=== PATIENT | female | born 1970 | race African-American/Black ===

== ENCOUNTER 2019-01-05 12:05 | Emergency (ER) | payer BC ==
[~2019-01-05] VITALS: Ht 180.3 cm; Wt 104.0 kg
[2019-01-05] MEDS ORDERED: ASPIRIN 325MG EC TABLET PO ONE (12:45)
[2019-01-05] MEDS ORDERED: DIAZEPAM 5 MG TABLET PO ONE (12:45)
[2019-01-05 12:55] LABS: BASOPHILS % 1.3 % (0.0-2.0); EOSINOPHILS % 2.7 % (0.0-5.0); HEMATOCRIT. 31.8 % (36.0-48.0); HEMOGLOBIN. 10.1 g/dL (12.0-16.0); LYMPHOCYTES % 39.6 % (20.0-50.0); MEAN CORPUSCULAR HEMOGLOBIN 21.3 pg (28.0-32.0); MEAN CORPUSCULAR VOLUME 67.1 fL (81.0-99.0); MEAN PLATELET VOLUME 6.5 fl (7.4-10.4); MONOCYTES % 7.3 % (2.0-8.0); NEUTROPHILS % 49.1 % (40.0-76.0); PLATELET 396 x1000/uL (130-400); RED BLOOD CELL COUNT 4.74 mill/uL (4.2-5.4); RED CELL DISTRIBUTION WIDTH 19.1 % (11.6-14.6)
[2019-01-05 13:01] LABS: CHLORIDE 109 mEq/L (98-107)
[2019-01-05 13:18] LABS: PLATELET ESTIMATE NORMAL
[2019-01-05 16:00] VITALS: BP 129/68
== END 2019-01-05 16:27 | disposition home or self-care (01) ==
LOC: ER 12:05
DX: M54.2 Cervicalgia (principal); M25.512 Pain in left shoulder; R07.89 Other chest pain; M54.6 Pain in thoracic spine
CPT/HCPCS: 36415; 71045; 84484; 93005; 99284

== ENCOUNTER 2021-06-22 15:10 | Emergency (ER) | payer BC ==
[~2021-06-22] VITALS: Ht 177.8 cm; Wt 128.0 kg
[2021-06-22 18:15] VITALS: BP 122/68
== END 2021-06-22 18:20 | disposition home or self-care (01) ==
LOC: ER 15:10
DX: R20.2 Paresthesia of skin (principal)
CPT/HCPCS: 82962; 93005; 99284

== ENCOUNTER 2021-09-09 09:16 | Emergency (ER) | payer BC ==
[~2021-09-09] VITALS: Ht 180.3 cm; Wt 122.0 kg
[2021-09-09] MEDS ORDERED: IBUP-2030 MT (10:58)
[2021-09-09] MEDS ORDERED: TRAM50TA3 MT (10:58)
[2021-09-09] MEDS ORDERED: METH-773 MT (10:58)
[2021-09-09] MEDS ORDERED: KETOROLAC 60MG/2ML VIAL IM ONE (11:00)
[2021-09-09 11:33] VITALS: BP 142/69
== END 2021-09-09 11:34 | disposition home or self-care (01) ==
LOC: ER 09:26
DX: M25.561 Pain in right knee (principal); Z98.890 Other specified postprocedural states
CPT/HCPCS: 73562; 93970; 96372; 99284; J1885; L1830; Z7610

== ENCOUNTER 2023-02-28 18:16 | Emergency (ER) | payer BC ==
[~2023-02-28] VITALS: Ht 180.3 cm; Wt 125.0 kg
[~2023-02-28 18:16] MED LIST: IBUP-2030 MT; METH-773 MT; TRAM50TA3 MT
[2023-02-28 18:23] VITALS: O2SAT 98
[2023-02-28] MEDS ORDERED: ACETAMINOPHEN 325MG TABLET PO ONE (20:00)
[2023-02-28] MEDS ORDERED: IBUP-2029 MT (20:34)
[2023-02-28] MEDS ORDERED: METH-653 MT (20:34)
[2023-02-28] MEDS ORDERED: BACITRACIN ZINC OINT UDPKT TOP ONE (20:45)
[2023-02-28 20:49] VITALS: BP 136/89; PULSE 78; RESP 20; TEMP 98.3
== END 2023-02-28 20:50 | disposition home or self-care (01) ==
LOC: ER 18:16
DX: M79.10 Myalgia, unspecified site (principal); M79.644 Pain in right finger(s)
CPT/HCPCS: 73140; 99283

== ENCOUNTER 2023-03-04 12:18 | Emergency (ER) | payer BC ==
[~2023-03-04] VITALS: Ht 180.3 cm; Wt 124.7 kg
[~2023-03-04 12:18] MED LIST changes: +IBUP-2029 MT; +METH-653 MT
[2023-03-04 12:31] VITALS: BP 144/77; PULSE 60; RESP 16; TEMP 98.6; O2SAT 98
[2023-03-04] MEDS ORDERED: LIDOCAINE 5% PATCH TOP SCH (13:30)
[2023-03-04] MEDS ORDERED: NAPROXEN 250MG TABLET PO ONE (13:30)
[2023-03-04] MEDS ORDERED: NAPR-1074 MT (14:06)
[2023-03-04] MEDS ORDERED: BACL20TA MT (14:06)
== END 2023-03-04 14:17 | disposition home or self-care (01) ==
LOC: ER 12:18
DX: S13.4XXA Sprain of ligaments of cervical spine, initial encounter (principal); Z00.00 Encounter for general adult medical examination without abnormal findings; V49.9XXA Car occupant (driver) (passenger) injured in unspecified traffic accident, initial encounter; Y93.89 Activity, other specified; Y92.89 Other specified places as the place of occurrence of the external cause; Y99.8 Other external cause status
CPT/HCPCS: 73110; 99283

== ENCOUNTER 2024-09-27 13:09 | Inpatient (IN) | payer BC ==
[~2024-09-27] VITALS: Ht 175.3 cm; Wt 91.6 kg
[~2024-09-27 13:09] MED LIST changes: +BACL20TA MT; +NAPR-1074 MT
[2024-09-27] MEDS: ASPIRIN 325MG TABLET PO ONE (14:54)
[2024-09-27 15:16] LABS: CHLORIDE 106 mEq/L (98-107); POTASSIUM 3.8 mEq/L (3.5-5.1); SODIUM 141 mEq/L (136-145)
[2024-09-27 15:17] LABS: BASOPHILS % 0.8 % (0.0-2.0); CALCIUM 8.9 mg/dL (8.7-10.4); CARBON DIOXIDE 26 mEq/L (21-32); EOSINOPHILS % 0.5 % (0.0-5.0); HEMATOCRIT. 40.7 % (36.0-48.0); HEMOGLOBIN. 13.5 g/dL (12.0-16.0); LYMPHOCYTES % 57.1 % (20.0-50.0); MEAN CORPUSCULAR HGB CONC 33.1 g/dL (31.0-37.0); MEAN CORPUSCULAR VOLUME 84.6 fL (81.0-99.0); MEAN PLATELET VOLUME 8.2 fl (7.4-10.4); MONOCYTES % 11.3 % (2.0-8.0); NEUTROPHILS % 30.3 % (40.0-76.0); PLATELET 262 x1000/uL (130-400); RED BLOOD CELL COUNT 4.82 mill/uL (4.2-5.4); RED CELL DISTRIBUTION WIDTH 14.7 % (11.6-14.6); WHITE BLOOD COUNT 4.1 x1000/uL (4.5-11.0)
[2024-09-27 15:22] LABS: CREATININE 0.8 mg/dL (0.6-1.0); GLUCOSE 109 mg/dL (70-105)
[2024-09-27 15:23] LABS: UREA NITROGEN BLOOD 8 mg/dL (9-23)
[2024-09-27 15:26] LABS: TROPONIN I HIGH SENSITIVITY < 4 ng/L (3.0-34)
[2024-09-27] MEDS ORDERED: IPRATROPIUM/ALBUTEROL 0.5-3(2.5)MG/3ML NEB HHN PRN (16:30)
[2024-09-27] MEDS: ENOXAPARIN 40MG/0.4ML SYR SUBCUT SCH (21:43)
[2024-09-27 22:39] LABS: TROPONIN I HIGH SENSITIVITY < 4 ng/L (3.0-34)
[2024-09-28] VITALS (7 sets, daily range): BP systolic 95–116; BP diastolic 50–69; PULSE 60–82; RESP 16–18; TEMP 36.16956–36.6696; O2SAT 96–100
[2024-09-28 07:14] LABS: CHLORIDE 107 mEq/L (98-107); POTASSIUM 3.8 mEq/L (3.5-5.1); SODIUM 143 mEq/L (136-145)
[2024-09-28 07:15] LABS: CALCIUM 9.3 mg/dL (8.7-10.4); CARBON DIOXIDE 27 mEq/L (21-32)
[2024-09-28 07:20] LABS: CREATININE 0.7 mg/dL (0.6-1.0); GLUCOSE 98 mg/dL (70-105); UREA NITROGEN BLOOD 8 mg/dL (9-23)
[2024-09-28 07:22] LABS: CREATINE KINASE 58 IU/L (34-145)
[2024-09-28 07:43] LABS: TROPONIN I HIGH SENSITIVITY < 4 ng/L (3.0-34)
[2024-09-28] MEDS: ASPIRIN 81MG EC TABLET PO SCH (08:20)
[2024-09-28] MEDS: ACETAMINOPHEN 325MG TABLET PO PRN (08:20)
[2024-09-28 08:21] LABS: BASOPHILS % 0.7 % (0.0-2.0); EOSINOPHILS % 0.5 % (0.0-5.0); HEMATOCRIT. 38.3 % (36.0-48.0); HEMOGLOBIN. 12.6 g/dL (12.0-16.0); MEAN CORPUSCULAR VOLUME 84.8 fL (81.0-99.0); MEAN PLATELET VOLUME 8.3 fl (7.4-10.4); MONOCYTES % 8.7 % (2.0-8.0); NEUTROPHILS % 40.1 % (40.0-76.0); PLATELET 230 x1000/uL (130-400); RED BLOOD CELL COUNT 4.52 mill/uL (4.2-5.4); WHITE BLOOD COUNT 4.7 x1000/uL (4.5-11.0)
[2024-09-28 09:41] LABS: HEPATITIS B SURFACE ANTIGEN NEGATIVE (Negative)
[2024-09-28 10:02] LABS: HEPATITIS C AB NON REACTIVE (Neg) (Negative)
[2024-09-28] MEDS: PREDNISONE 20MG TABLET PO NR (14:15)
[2024-09-28] MEDS: HYDROCODONE/ACETAMINOPHEN 5/325MG TABLET PO PRN (14:16)
[2024-09-28] MEDS: AZITHROMYCIN 500 MG TABLET PO SCH (14:20)
[2024-09-28] MEDS ORDERED: IOHEXOL-350 100 ML BOTTLE ONE (17:11)
[2024-09-28] MEDS ORDERED: ASPI-1406 PO (18:16)
[2024-09-28] MEDS ORDERED: AZIT500T8 PO (18:16)
[2024-09-29] VITALS: BP 107/59; PULSE 61; RESP 18; TEMP 36.8; O2SAT 99
[2024-09-29] MEDS ORDERED: IOHEXOL-350 100 ML BOTTLE ONE (00:01)
[2024-09-29 05:03] VITALS: BP 102/53; PULSE 66; RESP 18; TEMP 36.5; O2SAT 98
[2024-09-29] MEDS: ONDANSETRON HCL 4MG/2ML INJ IV PRN (06:58)
[2024-09-29 07:03] VITALS: BP 102/53; PULSE 66; TEMP 97.7; O2SAT 98
[2024-09-29 07:24] LABS: CREATINE KINASE 38 IU/L (34-145)
[2024-09-29 07:39] LABS: TROPONIN I HIGH SENSITIVITY < 4 ng/L (3.0-34)
[2024-09-29 08:00] VITALS: BP 96/57; PULSE 83; RESP 16; TEMP 36.7; O2SAT 95
[2024-09-29 11:39] VITALS: BP 96/57; PULSE 83; TEMP 98.1; O2SAT 95
[2024-09-29 12:00] VITALS: BP 97/59; PULSE 83; RESP 15; TEMP 36.7; O2SAT 97
== END 2024-09-29 12:13 | disposition home or self-care (01) | DRG 392 ==
LOC: ER 13:09 → 5WST 15:50 → EDBEDREQ 15:52 → EDBEDREQTM 15:52
PROVIDERS: ADMIT Internal Medicine; ATTEND Internal Medicine
DX: K21.9 Gastro-esophageal reflux disease without esophagitis (principal); J06.9 Acute upper respiratory infection, unspecified; Z20.822 Contact with and (suspected) exposure to COVID-19; G89.29 Other chronic pain; Z82.49 Family history of ischemic heart disease and other diseases of the circulatory system; Z79.899 Other long term (current) drug therapy
CPT/HCPCS: 36415; 71046; 71275; 80048; 82550; 84484; 85025; 85379; 86705; 87340; 87426; 87804; 93005; 99285; A4606; J1650; J2405; J7512; Q9967